=== PATIENT | male | born 1955 | race Caucasian/White ===

== ENCOUNTER 2023-10-31 10:09 | Outpatient (CLI) | payer MEDICARE, SELFPAY ==
--- NOTE | ~2023-10-31 | PE_ITS ---
EXAMINATION: PET_PETPSMAST_PT DATE: 10/31/2023 13:28 INDICATION: Malignant neoplasm of the prostate TECHNIQUE: 5.555 mCi of Illucix Ga-[id number]) was administered i.v. Low dose computed lola graphy (CT) images were acquired from the base of the brain to the base of the brain to the proximal thighs for attenuation correction and anatomic localization. Positron emission tomography (PET) image s were acquired in the same distribution beginning 95 minutes after injection. Images including fused PET/CT images were reconstructed in axial, coronal, and sagittal planes. Automated exposure control technique was employed. The dose-length product was 1275.57mGy-cm. COMPARISON: None FINDINGS: Head/neck: Typical pattern of symmetric physiologic increased activity in the lacrimal, parotid and submandibula r glands as well as along the mucosa of the nasal and oral cavities, pharynx and hypopharynx. No path ologically enlarged cervical lymphadenopathy or suspicious foci of increased uptake in the visualized head or neck. Chest: Mild dependent atelectasis in bilateral lower lobes. No suspicious pulmonary nodule, pneumonia, pulmo nary edema or pleural effusion. Heart size is normal. No pericardial effusion. Thoracic aorta is norm al in caliber. No pathologically enlarged or PSMA neck the thoracic lymphadenopathy. Abdomen/pelvis/proximal thighs: Physiologic renal accumulation and excretion of activity in the kidneys, bladder and along portions o f ureters. 2 mm nonobstructing stone at the lower pole of the left kidney. Status post prostatectomy. No evident abnormal soft tissue density at the prostatectomy bed to suggest residual/recurrent disea se. 1.6 cm cyst at the dome of the liver. Normal degree and slightly heterogenous pattern of increas ed uptake throughout the liver and spleen without radiologic correlate or dominant PSMA avid lesion. The gallbladder, pancreas and bilateral adrenal glands are normal. Moderate uptake scattered througho ut the bowels with typical duodenal and proximal jejunal predominance and without radiologic correlat e, also likely physiologic. There is moderate colonic diverticulosis with a sigmoid predominance. Th ere is no adjacent inflammatory change to suggest diverticulitis. Normal appendix. Small fat-contain ing umbilical hernia. No other abnormal foci of increased uptake or pathologically enlarged lymphade nopathy in the abdomen, pelvis or proximal thighs. Musculoskeletal: Small sclerotic bone island at the right pubic body without evident PSMA PET uptake. No suspicious ly tic, blastic or PSMA abdomen bone lesions. IMPRESSION: 1. Status post prostatectomy. No evident recurrent or metastatic disease. Reviewed, dictated and finalized at location A.
== END 2023-10-31 10:10 | disposition home or self-care (01) ==
PROVIDERS: PCP Family Medicine; Visit Provider Urology
DX: C61 Malignant neoplasm of prostate (principal)
CPT/HCPCS: 78815; A9596

== ENCOUNTER 2023-11-30 09:28 | Outpatient (CLI) | payer MEDICARE, SELFPAY ==
--- NOTE | ~2023-11-30 | MR_ITS ---
EXAMINATION: MR pelvis wo/w con DATE: 11/30/2023 10:28 INDICATION: Malignant neoplasm of prostate. TECHNIQUE: Magnetic resonance imaging (MRI) of the pelvis was performed without and with 20 mL MultiH ance intravenous contrast. COMPARISON: None. FINDINGS: There are changes of prostatectomy. There are no pathologically enlarged lymph nodes. There is divert iculosis of the colon without evidence of diverticulitis. There is no free intraperitoneal fluid. The re is no osseous malignancy. IMPRESSION: 1. Prostatectomy. No evidence of malignancy. Reviewed, dictated and finalized at location A.
== END 2023-11-30 09:29 | disposition home or self-care (01) ==
PROVIDERS: PCP Family Medicine; Visit Provider Radiology Radiation Oncology
DX: C61 Malignant neoplasm of prostate (principal); Z08 Encounter for follow-up examination after completed treatment for malignant neoplasm; Z90.79 Acquired absence of other genital organ(s)
CPT/HCPCS: 72197; A9577